=== PATIENT | female | born 1980 | race Caucasian/White ===

== ENCOUNTER 2020-10-02 20:52 | Emergency (ER) | payer OTHER ==
--- NOTE | 2020-10-03 00:58 | EDPHYS ---
Physician Documentation [facility] Name: Keely Gustafson Age: 40 yrs Sex: Female : 1980 Arrival Date: 10/02/2020 Time: 20:55 Bed 13 Private MD: ED Physician Krishna Key HPI: 10/03 01:06 This 40 yrs old Female presents to ER via Ambulatory with complaints of kb Fever, Cough, Sore Throat. 01:06 The patient or guardian reports cough, that is intermittent, described as mild, with no kb sputum, flu symptoms, low-grade fever, myalgias. Onset: The symptoms/episode began/occurred yesterday. Severity of symptoms: At their worst the symptoms were moderate, in the emergency department the symptoms are unchanged. Modifying factors: The symptoms are alleviated by nothing, the symptoms are aggravated by nothing. Associated signs and symptoms: Pertinent positives: fever, rhinorrhea, sore throat. The patient has not experienced similar symptoms in the past. The patient has not recently seen a physician. Historical: - Allergies: 10/02 21:11 No Known Allergies; ss - PMHx: 21:11 Diabetes - IDDM; ss - PSHx: 21:11 ; ss - Immunization history:: Adult Immunizations up to date. - Social history:: Smoking status: Patient denies any tobacco usage or history of. ROS: 10/03 01:05 Neck: Negative for injury, pain, and swelling, Cardiovascular: Negative for chest pain, kb palpitations, and edema, Abdomen/GI: Negative for abdominal pain, nausea, vomiting, diarrhea, and constipation, Back: Negative for injury and pain, MS/Extremity: Negative for injury and deformity, Skin: Negative for injury, rash, and discoloration. Constitutional: Positive for body aches, chills, fatigue, fever, malaise. ENT: Positive for rhinorrhea, sinus congestion, sore throat. Respiratory: Positive for cough, Negative for dyspnea on exertion, hemoptysis, orthopnea, pleurisy, shortness of breath, sputum production, wheezing. Neuro: Positive for headache. Exam: 01:05 Constitutional: This is a well developed, well nourished patient who is awake, alert, kb and in no acute distress. Head/Face: Normocephalic, atraumatic. Chest/axilla: Normal chest wall appearance and motion. Nontender with no deformity. No lesions are appreciated. Cardiovascular: Regular rate and rhythm with a normal S1 and S2. No gallops, murmurs, or rubs. Normal PMI, no JVD. No pulse deficits. Respiratory: Lungs have equal breath sounds bilaterally, clear to auscultation and percussion. No rales, rhonchi or wheezes noted. No increased work of breathing, no retractions or nasal flaring. Abdomen/GI: Soft, non-tender, with normal bowel sounds. No distension or tympany. No guarding or rebound. No evidence of tenderness throughout. Skin: Warm, dry with normal turgor. Normal color with no rashes, no lesions, and no evidence of cellulitis. MS/ Extremity: Pulses equal, no cyanosis. Neurovascular intact. Full, normal range of motion. Neuro: Awake and alert, GCS 15, oriented to person, place, time, and situation. Cranial nerves II-XII grossly intact. Motor strength 5/5 in all extremities. Sensory grossly intact. Cerebellar exam normal. Normal gait. Vital Signs: 10/02 21:06 BP 150 / 85; Pulse 76; Resp 16; Temp 97.9; Pulse Ox 99% on R/A; Weight 95.25 kg; Height ss 5 ft. 5 in. (165.10 cm); Pain 3/10; 10/03 00:36 Pulse 77; Temp 99.3(O); Pulse Ox 99% on R/A; sg 10/02 21:06 Body Mass Index 34.95 (95.25 kg, 165.10 cm) MDM: 00:39 Patient medically screened. kb 01:05 Data reviewed: vital signs, nurses notes. Data interpreted: Pulse oximetry: on room air kb is 99 %. Interpretation: normal. Counseling: I had a detailed discussion with the patient and/or guardian regarding: the historical points, exam findings, and any diagnostic results supporting the discharge/admit diagnosis, lab results, the need for outpatient follow up, a family practitioner, to return to the emergency department if symptoms worsen or persist or if there are any questions or concerns that arise at home. 10/02 21:14 Order name: Flu; Complete Time: 00:27 kb 10/02 21:14 Order name: Strep; Complete Time: 00:27 kb 10/02 21:42 Order name: COVID-19 kb 10/03 00:26 Order name: Throat Culture EDMS Administered Medications: No medications were administered Disposition: 05:18 Co-signature as Attending Physician, Krishna Key MD. [email or web address] Disposition: 10/03/20 00:57 Discharged to Home. Impression: Coronavirus infection, unspecified. - Condition is Stable. - Discharge Instructions: Viral Respiratory Infection, [id number], COVID-19. - Prescriptions for Albuterol Sulfate 90 mcg/actuation - inhale 1-2 puff by INHALATION route every 4-6 hours; 1 Inhaler. - Medication Reconciliation Form, Thank You Letter, Antibiotic Education, Prescription Opioid Use form. - Follow up: Emergency Department; When: As needed; Reason: Worsening of condition. Follow up: Private Physician; When: 2 - 3 days; Reason: Recheck today's complaints, Continuance of care, Re-evaluation by your physician. Signatures: Dispatcher [employer] EDKY Maranda Rhoades, MIKE-Nilam MCKEON-Arias Sahu RN RN sg Smirch, Shelby, RN RN ss Holmes, Maurice, MD MD [email or web address] Corrections: (The following items were deleted from the chart) 01:09 00:57 10/03/2020 00:57 Discharged to Home. Impression: Coronavirus infection, sg unspecified. Condition is Stable. Forms are Medication Reconciliation Form, Thank You Letter, Antibiotic Education, Prescription Opioid Use. Follow up: Emergency Department; When: As needed; Reason: Worsening of condition. Follow up: Private Physician; When: 2 - 3 days; Reason: Recheck today's complaints, Continuance of care, Re-evaluation by your physician. kb
--- NOTE | 2020-10-03 00:58 | ER ---
Nurse's Notes [facility] Name: Keely Gustafson Age: 40 yrs Sex: Female : 1980 Arrival Date: 10/02/2020 Time: 20:55 Bed 13 Private MD: Diagnosis: Coronavirus infection, unspecified Presentation: 10/02 21:06 Chief complaint: Patient states: "Last night I had a bad migraine, and chills. Today I ss started feeling better and out of no where I got hot, my throat started hurting and I took some Motrin because I had a fever.". Coronavirus screen: Client denies travel out of the [place] in the last 14 days. chills, cough unrelated to allergies, headache, shaking with chills, sore throat. Ebola Screen: Patient denies exposure to infectious person. Patient denies travel to an Ebola-affected area in the 21 days before illness onset. Initial Sepsis Screen: Does the patient meet any 2 criteria? No. Patient's initial sepsis screen is negative. Does the patient have a suspected source of infection? No. Patient's initial sepsis screen is negative. Risk Assessment: Do you want to hurt yourself or someone else? Patient reports no desire to harm self or others. Onset of symptoms was October 01, 2020. 21:06 Method Of Arrival: Ambulatory ss 21:06 Acuity: SAUD 4 ss Historical: - Allergies: 21:11 No Known Allergies; ss - PMHx: 21:11 Diabetes - IDDM; ss - PSHx: 21:11 ; ss - Immunization history:: Adult Immunizations up to date. - Social history:: Smoking status: Patient denies any tobacco usage or history of. Screenin/31 00:32 Abuse screen: Denies threats or abuse. Denies injuries from another. Nutritional ss screening: No deficits noted. Tuberculosis screening: No symptoms or risk factors identified. Never had TB. Fall Risk None identified. Assessment: 10/02 21:06 General: Appears uncomfortable, ill, Behavior is calm, cooperative, Reports chills for ss 12-24 hours, fever for 12-24 hours, feeling ill for 12-24 hours, fatigue for 12-24 hours. Pain: Complains of pain in Top of head Pain does not radiate. Pain currently is 3 out of 10 on a pain scale. Quality of pain is described as aching, Pain began 1 day ago. Neuro: Level of Consciousness is awake, alert, obeys commands, Oriented to person, place, time, situation. Cardiovascular: Pulses are palpable in right radial artery and left radial artery. Respiratory: Airway is patent Respiratory effort is even, unlabored, Respiratory pattern is regular, symmetrical. GI: Patient currently denies diarrhea, nausea, vomiting. : No signs and/or symptoms were reported regarding the genitourinary system. EENT: Reports sore throat. Derm: Skin is intact, is healthy with good turgor, Skin is dry, Skin is pink, warm \\T\\ dry. normal. 10/03 00:32 Reassessment: Patient appears in no apparent distress at this time. No changes from previously documented assessment. Vital Signs: 10/02 21:06 BP 150 / 85; Pulse 76; Resp 16; Temp 97.9; Pulse Ox 99% on R/A; Weight 95.25 kg; Height ss 5 ft. 5 in. (165.10 cm); Pain 3/10; 10/03 00:36 Pulse 77; Temp 99.3(O); Pulse Ox 99% on R/A; sg 10/02 21:06 Body Mass Index 34.95 (95.25 kg, 165.10 cm) ED Course: 10/02 20:55 Patient arrived in ED. cl3 21:10 Triage completed. ss 21:11 Arm band placed on right wrist. ss 21:41 Maranda hRoades [facility]C [facility] kb 21:41 Krishna Key MD is Attending Physician. kb 10/03 00:32 Patient has correct armband on for positive identification. Bed in low position. Pulse ss ox on. NIBP on. 00:32 Patient maintains SpO2 saturation greater than 95% on room air. ss 00:39 Lisbet Martell RN is Primary Nurse. ss 00:42 Primary Nurse role handed off by Lisbet Martell RN sg 00:42 Arias Richard, JACQUI is Primary Nurse. sg 00:42 No provider procedures requiring assistance completed. Patient did not have IV access ss during this emergency room visit. Administered Medications: No medications were administered Outcome: 00:57 Discharge ordered by . kb 01:09 Patient left the ED. sg Addendum: 10/05/2020 10:36 Addendum: COVID-19 Result: Positive result giiven to ED physician to notify pt. i w Physician: Sanket Stewart MD Physician was able to contact pt and pt was notified of positive COVID-19 swab result. Physician answered pt questions. Signatures: Maranda Rohades, SKEIN YARN DYER HELPER-C SKEIN YARN DYER HELPER-Ckb Arias Richard RN RN sg Williams, Irene, RN RN iw Lisbet Martell RN RN Shana Cueva cl3
[2020-10-03] MEDS ORDERED: IBUPROFEN 100 MG/5 ML UCUP ONE (01:19)
[2020-10-03 01:24] VITALS: BP 150/85; O2SAT 99
[2020-10-03 01:25] VITALS: TEMP 99.3
== END 2020-10-03 01:09 | disposition home or self-care (01) ==
LOC: ER 20:52
DX: U07.1 COVID-19 (principal)
CPT/HCPCS: 87070; 87081; 87804 ×2; 99284; U0002

== ENCOUNTER 2022-01-25 08:33 | Emergency (ER) | payer OTHER ==
--- OUTSIDE RECORDS SUMMARY | 2022-01-25 08:36 | XMS REPORT | Continuity of Care Document ---
:1980 Author Organization [facility] t Address [address] [place] [address] Care Team Providers Name Role Phone VISHNU RAINES Primary Care Physician Unavailable Kemal Attending Clinician Unavailable Rinku GARVIN Attending Clinician Unavailable Lulu LARWENCE Attending Clinician Lab, - Db Attending Clinician Unavailable Rinku Garvin MD Attending Clinician Payers Payer Name Policy Type Policy Number Effective Date Expiration Date S ource [place] [id number] 2017 [place]OMEN 00:00:00 [place] CHILDR[place] [id number] 2016 HEALTH 00:00:00 Problems Condition Condition Condition Status Onset Resolution Last Treating Co mments Source Name Details Category Date Date Treatment Clinician Date No known No known Disease Unive rs active active ity of problems problems [facility] Allergies, Adverse Reactions, Alerts Allergy Allergy Status Severity Reaction(s) Onset Inactive Treating Comm ents Source Name Type Date Date Clinician NO KNOWN Drug Active Univers ALLERGIE Class ity of S [facility] Social History Social Habit Start Date Stop Date Quantity Comments Source Exposure to Not sure [facility] SARS-CoV-2 (event) Medica l Branch Sex Assigned At [birth year] [facility] 00:00:00 00:00:00 Medical Branch Smoking Status Start Date Stop Date Source Unknown if ever smoked [facility] Medical Branch Medications Ordered Filled Start Stop Current Ordering Indication Dosage Frequency Signature Comments Components Source Medication Medication Date Date Medication? Clinician (SIG) Name Name Insulin Yes [id number] 30U inject 30 U nivers Glargine 2-11 Units ity of (LANTUS 00:00: under the [place] SOLOSTAR 00 skin Medical U-100 daily. Branch INSULIN) 100 unit/mL (3 mL) injection insulin Yes [id number] 10U inject 10 U nivers aspart 2-11 Units ity of U-100 00:00: under the [place] (NOVOLOG 00 skin 3 Medical FLEXPEN (three) Branch U-100 times INSULIN) daily 100 unit/mL before (3 mL) meals. injection Insulin Yes [id number] Use as Univ ers [place], 2-11 directed ity of Disposable, 00:00: [place] (PEN 00 Medical NEEDLE) 31 Branch gauge x 5/16" Ndle Insulin Yes [id number] 30U inject 30 U nivers Glargine 2-11 Units ity of (LANTUS 00:00: under the [place] SOLOSTHI 00 skin Medical U-100 daily. Branch INSULIN) 100 unit/mL (3 mL) injection insulin Yes [id number] 10U inject 10 U nivers aspart 2-11 Units ity of U-100 00:00: under the [place] (NOVOLOG 00 skin 3 Medical FLEXPEN (three) Branch U-100 times INSULIN) daily 100 unit/mL before (3 mL) meals. injection Insulin Yes [id number] Use as Univ ers [place], 2-11 directed ity of Disposable, 00:00: [place] (PEN 00 Medical NEEDLE) 31 Branch gauge x 5/16" Ndle Atorvastati Atorvastati 2019-0 Yes [place] [address] [facility] n Calcium n Calcium 4-16 [facility] - 00[facility]00: [facility] FreeStyle FreeStyle 2020-0 Yes [place] Test blood [facility] Lancets Lancets 4-16 [facility] sugar [facility] - 00:[facility]: [facility] FreeStyle FreeStyle 2019-0 Yes [place] test blood [facility] Lite Test Lite Test 4-16 [place] sugar Maggie es - 00:00: [facility] Outpat[facility] ent Clinics Humalog Humalog Yes [place] glucose [facility] KwikPen KwikPen 4- Milam 201-250 = Maggie es - 00:00: 4 Memoria 00 units,251- l 300=7 Outpati units, ent 301-350=9 Clinics units,351- 400=11 units over 400 call PCP Metoprolol Metoprolol Yes [place] [address] [facility] Succinate Succinate -08 [facility] Luke [facility] - ER ER 00:00: [facility] l Outpat[facility] ent Clinics [facility] 2018-10 Yes [id number] Apply to [facility] - area(s) 2 ity of acetonide 00:00: (two) [place] 0.1 % cream 00 times Medical daily. Branch [facility] 2018-10 Yes [id number] Apply to [facility] - area(s) 2 ity of acetonide 00:00: (two) [place] 0.1 % cream 00 times Medical daily. Branch prednisoLON Yes 1[drp] Place 1 U nivers E acetate 6-24 Drop in ity of (PRED 00:00: left eye [place] FORTE) 1 % 00 every 2 Medica l ophthalmic (two) Branch suspension hours. drops cyclopentol Yes 1[drp] Place 1 U nivers ate 6-24 Drop in ity of (CYCLOGYL) 00:00: left eye 3 [place] 1 % 00 (three) Medical ophthalmic times Branch drops daily. prednisoLON Yes 1[drp] Place 1 U nivers E acetate 6-24 Drop in ity of (PRED 00:00: left eye [place] FORTE) 1 % 00 every 2 Medica l ophthalmic (two) Branch suspension hours. drops cyclopentol Yes 1[drp] Place 1 U nivers ate 6-24 Drop in ity of (CYCLOGYL) 00:00: left eye 3 [place] 1 % 00 (three) Medical ophthalmic times Branch drops daily. metFORMIN 2016-10 Yes 1000mg Take 2 Univ ers 500 mg 2-18 tablets by ity of tablet 00:00: mouth 2 [place] 00 (two) Medical times Branch daily with meals. metFORMIN 2016-10 Yes 1000mg Take 2 Univ ers 500 mg 2-18 tablets by ity of tablet 00:00: mouth 2 [place] 00 (two) Medical times Branch daily with meals. ZOAN, 2015-0 Yes 4mg Take 1 Tab U nivers HYDROCHLORI 3-12 by mouth ity of [place], 4 mg 00:00: every 12 [place] tablet 00 (twelve) Medical hours. Branch ZOFRAN, 2015-0 Yes 4mg Take 1 Tab U nivers HYDROCHLORI 3-12 by mouth ity of [place], 4 mg 00:00: every 12 [place] tablet 00 (twelve) Medical hours. Branch Losartan Losartan Yes [place] [address] Potassium Potassium [facility] - [facility] Levemir Levemir Yes [place] [address] [facility] [facility] FlexTouch FlexTouch [facility] - [facility] Metformin Metformin Yes [place] [address] [facility] HCl HCl Milam with a [facility] - meal [facility] Immunizations Ordered Filled Immunization Date Status Comments Sourc e Immunization Name Name Flucelvax Flucelvax 2018-07-[address] [facility] Procedures Procedure Date / Time Performed Performing Clinician Sourc e COMP. METABOLIC PANEL 2021-11-14 18:06:00 Josep Garvin [facility] ([id number]) Medical Branch LIPID PANEL 2021-11-14 18:06:00 Josep Garvin [facility] ([id number])(TOTAL Medical Branch CHOLESTEROL, TRIGLYCERIDES, HDL) CBC WITHOUT DIFF 2021-11-14 18:06:00 Josep Garvin [facility] Medical Branch Encounters Start End Encounter Admission Attending Care Care Encounter Source Date/Time Date/Time Type Type Clinicians Facility Department ID 2021-10-29 Outpatient [facility] [id number] [facility] 14:15:45 [place] [id number] [facility] 2021-10-29 Outpatient MilamSTSELENALC [facility] [id number] [facility] [address] 13:48:01 [place] [id number] [facility] 2021-10-29 Outpatient Milam, [facility] [id number] 11:29:48 [place] [id number] [facility] 2021-10-29 Outpatient Kemal [facility] [id number] [facility] 11:17:46 [place] [id number] [facility] 2022-03-20 2022-03-20 Outpatient Yeimy GARVIN [facility] [id number] Univers 14:00:00 14:00:00 JOSEP [id number] [facility] 2022-03-20 2022-03-20 [facility] [id number] Univers 14:00:00 14:00:00 JOSEP [facility] 2022-01-01 2022-01-01 ambulatory [facility] [id number] [facility] 2021-11-15 2021-11-15 Telephone Carlos Lawson [facility] [id number] Univers 00:00:00 00:00:00 HEALTH [id number] it y of [facility] [id number] [place] [facility] [phone] [address] ([facility]) 2021-11-14 2021-11-14 Product Development Intern Lab, Deon Shelton [facility] [id number] Univers 12:00:00 12:48:32 Visit Josep Garvin HEALTH [id number] ity of [place] [id number] Kam as JIM?BLEA [phone] [place] [address] MEDICAL OFFICE BUILDING 2021-11-14 2021-11-14 [facility] [id number] Univers 11:00:00 11:51:54 JOSEP [facility] 2021-08-11 2021-08-11 ambulatory [facility]C [facility] [id number] [facility] 2021-07-07 2021-07-07 Outpatient [facility] [id number] [facility] 2021-05-26 2021-05-26 Outpatient [facility]LMLC [facility] [id number] [facility] 2021-01-14 2021-01-14 Outpatient [facility]LMLC [facility] [id number] [facility] 2020-12-26 2020-12-26 Outpatient [facility]LMLC [facility] [id number] [facility] 2020-12-20 2020-12-20 Outpatient [facility]LMLC [facility] [id number] [facility] 2020-12-19 2020-12-19 Outpatient [facility]LMLC [facility] [id number] [facility] 2020-12-19 2020-12-19 Outpatient [facility]LMLC [facility] [id number] [facility] 2020-10-28 2020-10-28 Outpatient STLMLC [facility] [id number] [facility] 2020-10-28 2020-10-28 Outpatient [facility]LMLC [facility] [id number] [facility] 2020-10-14 2020-10-14 Outpatient [facility]LMLC [facility] [id number] [facility] 2020-10-14 2020-10-14 Outpatient [facility]LMLC [facility] [id number] [facility] 2020-05-21 2020-05-21 [facility] [id number] [address] 13:00:00 13:00:00 [facility] Outpat[facility] ent Clinics 2020-03-01 2020-03-01 [facility] [id number] 10:40:00 10:40:00 t [facility] Medicine Medicine Outpati ent Clinics 2020-01-18 2020-01-18 [facility] [id number] 09:07:00 09:07:00 t [facility] Medicine Outpati ent Clinics 2020-01-18 2020-01-18 [facility] [id number] 08:41:00 08:41:00 t [facility] Medicine l Medicine Outpati ent Clinics 2020-01-17 2020-01-17 [facility] [id number] 14:00:00 14:00:00 t [facility] Medicine Outpati ent Clinics 2020-01-12 2020-01-12 [facility] [id number] 14:31:00 14:31:00 t [facility] Medicine Outpati ent Clinics 2020-01-12 2020-01-12 [facility] [id number] 14:25:00 14:25:00 t [facility] Medicine Outpati ent Clinics 2020-01-10 2020-01-10 [facility] [id number] 14:40:00 14:40:00 t [facility] Medicine Outpati ent Clinics 2019-08-02 2019-08-02 [facility] [id number] 09:40:00 09:40:00 t [facility] Medicine Medicine Outpati ent Clinics 2019-07-27 2019-07-27 [facility] [id number] 11:46:00 11:46:00 t [facility] [place] Medicine Outpati ent Clinics 2019-07-17 2019-07-17 [facility] [id number] [facility] 14:40:00 14:40:00 t [facility] l Medicine Outpati ent Clinics 2019-07-03 2019-07-03 [facility] [id number] 11:40:00 11:40:00 [facility] 2018-12-16 2018-12-16 [facility] [id number] 14:14:00 14:14:00 [facility] 2018-12-15 2018-12-15 [facility] [id number] 09:00:00 09:00:00 [facility] 2018-11-01 2018-11-01 [facility] [id number] 14:30:00 14:30:00 [facility] 2018-10-12 2018-10-12 [facility] [id number] 15:00:00 15:00:00 [facility] 2018-07-13 2018-07-13 [facility] [id number] 15:00:00 15:00:00 [facility] ent Clinics Results Test Description Test Time Test Comments Results Result Comments Source CBC WITHOUT DIFF 2021-11-14 23:08:38 Test Item Value Reference Range Interpretation Comme nts WBC (test code = 6690-2) See_Comment [A utomated message] The system which generated this result transmitted ref erence range: 4.30 - 11.10 10 *3/?L. The reference range was not used to interpret this result as normal/abnormal . RBC (test code = 789-8) See_Comment [Au tomated message] The system which generated this result transmitted ref erence range: 3.93 - 5.25 10* 6/?L. The reference range was not used to interpret this result as normal/abnormal . HGB (test code = 718-7) 12.5 g/dL 11.6-15.0 HCT (test code = 4544-3) 39.0 % 35.7-45.2 MCH (test code = 785-6) 26.4 pg 25.9-32.8 MCV (test code = 787-2) 82.3 fL 80.6-95.5 MCHC (test code = 786-4) 32.1 g/dL 31.6-35.1 PLT (test code = 777-3) See_Comment [Au tomated message] The system which generated this result transmitted ref erence range: 166 - 358 10*3/ ?L. The reference range was not used to interpret this result as normal/abnormal . MPV (test code = 86761-8) 11.7 fL 9.5-12.9 RDW-CV (test code = 788-0) 13.0 % 12.0-15.5 RDW-SD (test code = 74662-0) 38.7 fL 39.0-49.9 L NRBC x10^3 (test code = <0.01 See_Comment [Au tomated message] The system [id number]) which generated this result transmitted ref erence range: 10*3/?L. The re ference range was not used to interpret this result as lane l/abnormal. NRBC/100 WBC (test code = See_Comment [ Automated message] The system [id number]) which generated this result transmitted ref erence range: 0.0 - 10.0 /100 WBCs. The reference range was not used to interpret this result as normal/abnormal . IPF % (test code = 2780969777) Lab Interpretation (test code Abnormal = 26694-1) [id number][facility]TOTAL CHOLESTEROL, TRIGLYCERIDES, HDL)2021-11-14 22:18:31 Test Item Value Reference Range Interpretation Comments CHOL (test code = 204 mg/dL 120-200 H [id number]) HDL (test code = 45 mg/dL >50 L [id number]) HDLC RATIO (test code = See_Comment [Au tomated message] [id number]) The system whic h generated this result transmit mynor reference range : <=4.5. The refe rence range was not u sed to interpret th is result as normal/abnormal . TRIG (test code = 250 mg/dL 30-170 H [id number]) LDL CHOL (test code = 109 mg/dL See_Comment [Auto mated message] 45220-2) The system Stepsss generated this result transmit mynor reference range : <=160. The refe rence range was not u sed to interpret th is result as normal/abnormal . VLDL (test code = 50 mg/dL 5-60 5913450304) Lab Interpretation (test Abnormal code = 89173-1) [facility]. METABOLIC PANEL ([id number])2021-11-14 21:56:26 Test Item Value Reference Range Interpretation Comments NA (test code = 135 mmol/L 135-145 [id number]) K (test code = 4.5 mmol/L 3.5-5.0 5334104005) CL (test code = 101 mmol/L 98-108 6905366540) CO2 TOTAL (test code = 28 mmol/L 23-31 8953108562) AGAP (test code = 2-16 7203546489) BUN (test code = 16 mg/dL 7-23 6209705697) GLUCOSE (test code = 275 mg/dL 70-110 H [id number]) CREATININE (test code = 0.34 mg/dL 0.50-1.04 L 0736134481) TOTAL BILI (test code = 0.5 mg/dL 0.1-1.1 4798240268) CALCIUM (test code = 9.2 mg/dL 8.6-10.6 9636638227) T PROTEIN (test code = 7.1 g/dL 6.3-8.2 8357454008) ALBUMIN (test code = 4.4 g/dL 3.5-5.0 4215448287) ALK PHOS (test code = 55 U/L 34-122 9349343207) ALTv (test code = 13 U/L 5-35 1742-6) AST(SGOT) (test code = 18 U/L 13-40 7409147816) eGFR (test code = mL/min/1.73m2 6362700968) MELVIN (test code = MELVIN) Association of Glomerular Filtration Rate (GFR) and Staging of Kidney Disease* + --+ --+ ------+| GFR (mL/min/1.73 m2) ?| With Kidney Damage ?| ?Without Kidney Damage+ --------+ --------+ +| ?>90 ?| ?Stage one ?| ? Normal ?+ ---+ ---+ -------+| ?60-89 ?| ?Stage two ?| ? Decreased GFR ? + --+ --+ ------+| ?30-59 ?| ?Stage three ?| ? Stage three ? + --+ --+ ------+| ?15-29 ?| ?Stage four ? | ? Stage four ?+ ---+ ---+ -------+| ?<15 (or dialysis) ? ?| ?Stage five ? | ? Stage five ?+ ---+ ---+ -------+ *Each stage assumes the associated GFR level has been in effect for at least three months. ?Stages 1 to 5, with or without kidney disease, indicate chronic kidney disease. Notes: Determination of stages one and two (with eGFR >59mL/min/1.73 m2) requires estimation of kidney damage for at least three months as defined by structural or functional abnormalities of the kidney, manifested by either:Pathological abnormalities or Markers of kidney damage (including abnormalities in the composition of the blood or urine or abnormalities in imaging tests). Lab Interpretation Abnormal (test code = 92933-1) [facility]
[2022-01-25] MEDS ORDERED: CYCLOBENZAPRINE 10 MG TAB ONE (09:02)
[2022-01-25] MEDS ORDERED: HYDROCODONE/APAP 10/325 TAB ONE (09:03)
[2022-01-25] MEDS ORDERED: KETOROLAC 30 MG/ML INJ ONE (09:03)
[2022-01-25] MEDS ORDERED: LIDOCAINE 4% PATCH ONE (09:03)
--- NOTE | 2022-01-25 10:02 | ER ---
Nurse's Notes [facility] Name: Keely Gustafson Age: 41 yrs Sex: Female : 1980 Arrival Date: 01/25/2022 Time: 08:35 Bed 19 Private MD: Mercedez Sommer Diagnosis: Strain of muscle, fascia and tendon of lower back Presentation: 01/25 08:45 Chief complaint: Patient states: R lower back pain since bending over Wednesday morning. ll1 Has gotten worse and radiates up R side of back now. Coronavirus screen: Vaccine status: Patient reports receiving the 2nd dose of the covid vaccine. Client denies travel out of the [place] in the last 14 days. At this time, the client does not indicate any symptoms associated with coronavirus-19. Ebola Screen: Patient denies travel to an Ebola-affected area in the 21 days before illness onset. Initial Sepsis Screen: Does the patient meet any 2 criteria? HR > 90 bpm. No. Patient's initial sepsis screen is negative. Does the patient have a suspected source of infection? Yes: Bone or joint infection. Risk Assessment: Do you want to hurt yourself or someone else? Patient reports no desire to harm self or others. Onset of symptoms was January 23, 2022. 08:45 Method Of Arrival: Wheelchair ll1 08:45 Acuity: SAUD 4 ll1 Triage Assessment: 08:46 General: Appears uncomfortable, Behavior is cooperative, appropriate for age. Pain: ll1 Complains of pain in back Quality of pain is described as aching. Neuro: No deficits noted. Cardiovascular: No deficits noted. Respiratory: No deficits noted. Musculoskeletal: Circulation, motion, and sensation intact. Capillary refill < 3 seconds, Range of motion: intact in all extremities, Reports pain in back. FAC ENGINEER: 08:47 LMP N/A - control method ll1 Historical: - Allergies: 08:44 No Known Drug Allergies; ll1 - PMHx: 08:44 Diabetes - IDDM; ll1 08:44 Hypertensive disorder; ll1 - PSHx: 08:44 section; ll1 - Immunization history:: Client reports receiving the 2nd dose of the Covid vaccine. - Social history:: Smoking status: Reported history of juuling and/or vaping. Screenin:47 Abuse screen: Denies threats or abuse. Nutritional screening: No deficits noted. ll1 Tuberculosis screening: No symptoms or risk factors identified. Fall Risk Ambulatory Aid- Crutches/Cane/Walker (15 pts). Gait- Weak (10 pts.). Total Rutledge Fall Scale indicates Low Risk Score (25-44 pts). Fall prevention measures have been instituted. Side Rails Up X 2 Placed close to Nursing Station Frequent Obs/Assesments occuring Family Present and informed to notify staff if they need to leave bedside As available Patient and Family Educated on Fall Prevention Program and strategies. Assessment: 09:45 Reassessment: No changes from previously documented assessment. Patient and/or family ll1 updated on plan of care and expected duration. Pain level reassessed. Patient is alert, oriented x 3, equal unlabored respirations, skin warm/dry/pink. Patient states feeling better. Patient states symptoms have improved. Neuro: No deficits noted. 10:12 Reassessment: No changes from previously documented assessment. Patient and/or family ll1 updated on plan of care and expected duration. Pain level reassessed. Patient is alert, oriented x 3, equal unlabored respirations, skin warm/dry/pink. Neuro: No deficits noted. Vital Signs: 08:45 BP 154 / 100; Pulse 108; Resp 18; Temp 97.1; Pulse Ox 100% ; Weight 95.25 kg; Height 5 ll1 ft. 5 in. (165.10 cm); Pain 10/10; 10:10 BP 146 / 99; Pulse 100; Resp 17; Pulse Ox 100% ; Pain 1/10; ll1 08:45 Body Mass Index 34.95 (95.25 kg, 165.10 cm) ll1 ED Course: 08:35 Patient arrived in ED. mr 08:35 Mercedez Sommer is Private Physician. mr 08:38 Pawel Betancourt NP is PHCP. pm1 08:38 Gelacio Truong MD is Attending Physician. pm1 08:44 Arm band placed on Patient placed in an exam room, on a stretcher. ll1 08:46 Triage completed. ll1 08:47 Patient has correct armband on for positive identification. Bed in low position. Call ll1 light in reach. Side rails up X 1. Pulse ox on. NIBP on. 09:09 Chinedu, Lynsay, RN is Primary Nurse. 1 10:12 No provider procedures requiring assistance completed. Patient did not have IV access ll1 during this emergency room visit. Administered Medications: 09:08 Drug: Lidoderm Patch 5 % (700 mg/patch) 1 patches Route: Topical; Site: affected area; ll1 10:11 Follow up: Response: No adverse reaction; Pain is decreased; RASS: Alert and Calm (0) 1 09:08 Drug: Ketorolac 60 mg Route: IM; Site: left gluteus; ll1 10:11 Follow up: Response: No adverse reaction; Pain is decreased; RASS: Alert and Calm (0) 1 09:08 Drug: [place] (HYDROcodone-acetaminophen) 10 mg-325 mg 1 tabs {Note: rass 0, pain 10/10.} ll1 Route: PO; 10:11 Follow up: Response: No adverse reaction; Pain is decreased; RASS: Alert and Calm (0) 1 09:08 Drug: Flexeril (cyclobenzaprine) 10 mg Route: PO; ll1 10:11 Follow up: Response: No adverse reaction; Pain is decreased; RASS: Alert and Calm (0) [facility] Outcome: 10:02 Discharge ordered by MD. pm1 10:12 Discharged to home via wheelchair. ll1 10:12 Condition: stable 10:12 Discharge instructions given to patient, Instructed on discharge instructions, follow up and referral plans. no drinking with medication, no driving heavy equipment, medication usage, Demonstrated understanding of instructions, follow-up care, medications, Prescriptions given X 4. 10:12 Patient left the ED. 1 Signatures: Rupal Aranda Patrick, [employer] pm1 Stella Che, RN RN [facility]
--- NOTE | 2022-01-25 10:02 | EDPHYS ---
Physician Documentation [facility] Name: Keely Gustafson Age: 41 yrs Sex: Female : 1980 Arrival Date: 01/25/2022 Time: 08:35 Bed 19 Private MD: Mercedez Sommer ED Physician Gelacio Truong HPI: 01/25 08:56 This 41 yrs old Female presents to ER via Wheelchair with complaints of Back pm1 Pain. 08:56 The patient presents with pain that is acute. The symptoms are located in the right low pm1 back. Onset: The symptoms/episode began/occurred 2 day(s) ago. The pain radiates to the right mid back. Associated signs and symptoms: Pertinent negatives: dysuria, numbness, tingling, weakness. The problem was sustained when bending over, to crab picker dog treat rom under the refrigerator. Modifying factors: The patient symptoms are alleviated by specific position, the patient symptoms are aggravated by sitting and movement. Severity of symptoms: in the emergency department the symptoms are actually worse. The patient has not experienced similar symptoms in the past. The patient has not recently seen a physician. Patient was feeding her dog some treats when one of the treats went underneath the refrigerator. She bent over at the hip to crab picker the treat then she felt a mild pop/pain in her right upper buttocks area. Patient went to work the same day and then started experiencing more pain at sitting at her desk after 2 hours of work. Patient presents to the ER today due to increased pain. 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 - Social history:: Smoking status: Reported history of juuling and/or vaping. ROS: 08:56 Constitutional: Negative for fever, chills, and weight loss, Cardiovascular: Negative pm1 for chest pain, palpitations, and edema, Respiratory: Negative for shortness of breath, cough, wheezing, and pleuritic chest pain, Abdomen/GI: Negative for abdominal pain, nausea, vomiting, diarrhea, and constipation, MS/Extremity: Negative for injury and deformity, Skin: Negative for injury, rash, and discoloration. 08:56 Back: Positive for injury or acute deformity, pain with movement, of the right low back, Pain. 08:56 Neuro: Negative for numbness, tingling, weakness. 08:56 All other systems are negative. Exam: 08:56 Constitutional: This is a well developed, well nourished patient who is awake, alert, pm1 and in no acute distress. Head/Face: Normocephalic, atraumatic. 08:56 Skin: Warm, dry with normal turgor. Normal color with no rashes, no lesions, and no evidence of cellulitis. MS/ Extremity: Pulses equal, no cyanosis. Neurovascular intact. Full, normal range of motion. 08:56 Cardiovascular: Exam negative for acute changes, Rate: normal, Rhythm: regular, Pulses: no pulse deficits are appreciated. 08:56 Respiratory: Exam negative for acute changes, respiratory distress, shortness of breath, Breath sounds: are clear throughout. 08:56 Back: normal spinal alignment noted, muscle spasm, is appreciated in the right upper buttocks just below posterior iliac crest, negative vertebral tenderness. 08:56 Neuro: Exam negative for acute changes, Orientation: is normal, Mentation: is normal, Motor: is normal, moves all fours, Sensation: is normal, no obvious gross deficits. Vital Signs: 08:45 BP 154 / 100; Pulse 108; Resp 18; Temp 97.1; Pulse Ox 100% ; Weight 95.25 kg; Height 5 ll1 ft. 5 in. (165.10 cm); Pain 10/10; 10:10 BP 146 / 99; Pulse 100; Resp 17; Pulse Ox 100% ; Pain 1/10; ll1 08:45 Body Mass Index 34.95 (95.25 kg, 165.10 cm) ll1 MDM: 08:45 Patient medically screened. pm1 10:01 Data reviewed: vital signs. Data interpreted: Pulse oximetry: on room air is 100 %. pm1 Interpretation: normal. Counseling: I had a detailed discussion with the patient and/or guardian regarding: the historical points, exam findings, and any diagnostic results supporting the discharge/admit diagnosis, the need for outpatient follow up, to return to the emergency department if symptoms worsen or persist or if there are any questions or concerns that arise at home. 10:01 ED course: Patient reports significant improvement in pain and is ready to go home. pm1 Administered Medications: 09:08 Drug: Lidoderm Patch 5 % (700 mg/patch) 1 patches Route: Topical; Site: affected area; ll1 10:11 Follow up: Response: No adverse reaction; Pain is decreased; RASS: Alert and Calm (0) 1 09:08 Drug: Ketorolac 60 mg Route: IM; Site: left gluteus; ll1 10:11 Follow up: Response: No adverse reaction; Pain is decreased; RASS: Alert and Calm (0) 1 09:08 Drug: Hinkle (HYDROcodone-acetaminophen) 10 mg-325 mg 1 tabs {Note: rass 0, pain 10/10.} ll1 Route: PO; 10:11 Follow up: Response: No adverse reaction; Pain is decreased; RASS: Alert and Calm (0) [facility] 09:08 Drug: Flexeril (cyclobenzaprine) 10 mg Route: PO; ll1 10:11 Follow up: Response: No adverse reaction; Pain is decreased; RASS: Alert and Calm (0) [facility] Disposition Summary: 01/25/22 10:02 Discharge Ordered Location: Home pm1 Problem: new pm1 Symptoms: have improved pm1 Condition: Stable pm1 Diagnosis - Strain of muscle, fascia and tendon of lower back pm1 Followup: pm1 - With: Emergency Department - When: As needed - Reason: Worsening of condition Followup: pm1 - With: Private Physician - When: 2 - 3 days - Reason: Recheck today's complaints, Continuance of care, Re-evaluation by your physician Discharge Instructions: - Acute Back Pain, Adult pm1 - Muscle Strain pm1 - Discharge Summary Sheet ll1 - Back Injury Prevention pm1 Forms: - Work release form ll1 - Medication Reconciliation Form pm1 - Thank You Letter pm1 - Antibiotic Education pm1 - Prescription Opioid Use pm1 Prescriptions: - Lidoderm 5 % Topical adhesive patch,medicated - apply 1 patch by TRANSDERMAL route once daily As needed 12 hours on and 12 hors pm1 off in a 24 hour period; 10 patch; Refills: 0, Product Selection Permitted - Cyclobenzaprine 10 mg Oral Tablet - take 1 tablet by ORAL route every 8 hours As needed; 30 tablet; Refills: 0, pm1 Product Selection Permitted - Tylenol-Codeine #3 300 mg-30 mg Oral - take 2 tablet by ORAL route every 6 hours As needed; 20 tablet; Refills: 0, pm1 Product Selection Permitted - Diclofenac Sodium 75 mg Oral tablet,delayed release (DR/EC) - take 1 tablet by ORAL route 2 times per day As needed; 30 tablet; Refills: 0, pm1 Product Selection Permitted Signatures: Pawel Betancourt NP CORNER BEAD OPERATOR pm1 Stella Che RN RN ll1
[2022-01-25 10:34] VITALS: BP 146/99; O2SAT 100
[2022-01-25 10:35] VITALS: TEMP 97.1
== END 2022-01-25 10:12 | disposition home or self-care (01) ==
LOC: ER 08:33
DX: S39.012A Strain of muscle, fascia and tendon of lower back, initial encounter (principal); E11.9 Type 2 diabetes mellitus without complications; I10 Essential (primary) hypertension
CPT/HCPCS: 96372; 99283

== ENCOUNTER 2022-09-13 19:57 | Emergency (ER) | payer OTHER ==
--- OUTSIDE RECORDS SUMMARY | 2022-09-13 20:00 | XMS REPORT | Continuity of Care Document ---
:1980 Author Organization [facility] t Address [address] [place] [address] Care Team Providers Name Role Phone MERCEDEZ RAINES Primary Care Physician Unavailable Mercedez Raines Attending Clinician Unavailable GC_SEFP_Rivera_A Attending Clinician Unavailable JOSEP GARVIN Attending Clinician Unavailable Carlos Lawson MD Attending Clinician Lab, Ang - Db Attending Clinician Unavailable Josep Garvin MD Attending Clinician GC_SEFP_Rivera_A Admitting Clinician Unavailable Payers Payer Name Policy Type Policy Number Effective Date Expiration Date S [place] OF [id number] 2022 [place] - [facility] 00:00:00 (POS) CT CHILDREN STAR [id number] 2017 00:00:00 [place] CHILDRENS [id number] 2017 Common HEALTH PLAN 00:00:00 [facility] CHILDRENS C1 [id number] 2019 Common [facility] [id number] 2017 Common HEALTH PLAN 00:00:00 [facility] Problems Condition Condition Condition Status Onset Resolution Last Treating Co mments Source Name Details Category Date Date Treatment Clinician Date [id number] Other Problem Active Common chronic Spirit pain - [facility] [id number] Mixed Problem Active Common hyperlipid Spirit emia - [facility] Essential Hypertensi Problem Active Co mmon hypertensi on, Spirit on unspecifie - CHI d type [facility] [id number] 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 - CHI knee [facility] Slow Slow Problem Active Common transit transit Spirit constipati constipati - CHI on on [facility] [id number] oysterman Problem Active Com wed current Spirit use of - CHI insulin [facility] [id number] Allergic Problem Active Comm on conjunctiv Spirit itis of - CHI both eyes [facility] [id number] Diabetic Problem Active Comm on autonomic Spirit neuropathy - [facility] associated [facility] [place] [address] diabetes Medica l mellitus [place] [id number] 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 - [facility] r [facility] No known No known Disease Unive rs active active ity of problems problems [facility] Allergies, Adverse Reactions, Alerts Allergy Allergy Status Severity Reaction(s) Onset Inactive Treating Comm ents Source Name Type Date Date Clinician NO KNOWN Drug Active Univers ALLERGIE Class ity of [facility] Social History Social Habit Start Date Stop Date Quantity Comments Source History of Tobacco Use Co mmon [facility] Sex Assigned At Com mon [facility] Exposure to SARS-CoV-2 Not sure Un iversity [facility] (event) Medical Branch Smoking Status Start Date Stop Date Source Unknown if ever smoked [facility] Never Smoker Common [facility] Medications Ordered Filled Start Stop Current Ordering Indication Dosage Frequency Signature Comments Components Source Medication Medication Date Date Medication? Clinician (SIG) Name Name Colace 100 Colace 100 2021- No 2{capsu QD Colace 100 MG MG 01-01 le_as_n MG 00:00: 00:00 eeded} 00 :00 Insulin Yes [id number] 30U inject 30 U nivers Glargine 2-11 Units ity of (LANTUS 00:00: under the [place] SOLOSTAR 00 skin Medical U-100 daily. Branch INSULIN) 100 unit/mL (3 mL) injection insulin Yes [id number] 10U inject 10 U nivers aspart 2-11 Units ity of U-100 00:00: under the [place] (NOVOLOG 00 skin 3 Medical FLEXPEN (three) Branch U-100 times INSULIN) daily 100 unit/mL before (3 mL) meals. injection Insulin Yes [id number] Use as Univ ers [place], 2-11 directed ity of Disposable, 00:00: [place] (PEN 00 Medical NEEDLE) 31 Branch gauge x 5/16" Ndle Insulin Yes [id number] 30U inject 30 U nivers Glargine 2-11 Units ity of (LANTUS 00:00: under the [place] SOLOSTAR 00 skin Medical U-100 daily. Branch INSULIN) 100 unit/mL (3 mL) injection insulin Yes [id number] 10U inject 10 U nivers aspart 2-11 Units ity of U-100 00:00: under the [place] (NOVOLOG 00 skin 3 Medical FLEXPEN (three) Branch U-100 times INSULIN) daily 100 unit/mL before (3 mL) meals. injection Insulin Yes [id number] Use as Univ ers [place], 2-11 directed ity of Disposable, 00:00: [place] (PEN 00 Medical NEEDLE) 31 Branch gauge x 5/16" Ndle Fluconazole Fluconazole 2020-10- No 1{table Fluconazol 150 MG 150 MG 0-05 10-15 t} e 150 MG 00:00: 00:00 00 :00 Lactulose Lactulose No QD Lactulose 10 GM/15ML 10 GM/15ML 3-29 10 GM/15ML 00:00: 00 Lactulose Lactulose 0 No QD Lactulose 10 GM/15ML 10 GM/15ML 3-29 10 GM/15ML 00:00: 00 Linzess 72 Linzess 72 2020- No QD Linzess 72 MCG MCG 3-18 06-16 MCG 00:00: 00:00 00 :00 Linzess 72 Linzess 72 2020- No QD Linzess 72 MCG MCG 3-18 06-16 MCG 00:00: 00:00 00 :00 Atorvastati Atorvastati 2020-0 Yes Mercedez 1 tablet Common n Calcium n Calcium 4-16 [place] Spir it 00:00: - CHI 00 [facility] FreeStyle FreeStyle 2020-0 Yes Mercedez Test blood Common Lancets Lancets 4-16 [place] sugar Spirit 00:00: - CHI 00 [facility] FreeStyle FreeStyle 2020-0 Yes Mercedez test blood Common Lite Test Lite Test 4-16 [place] sugar Spi rit 00:00: - CHI 00 [facility] FreeStyle FreeStyle 2020-0 No FreeStyle Lancets - Lancets - 4-16 Lancets - 00:00: 00 FreeStyle FreeStyle 2020-0 No FreeStyle Lite Test - Lite Test - 4-16 Lite Test 00:00: - 00 FreeStyle FreeStyle 2020-0 No FreeStyle Lancets - Lancets - 4-16 Lancets - 00:00: 00 FreeStyle FreeStyle 2020-0 No FreeStyle Lite Test - Lite Test - 4-16 Lite Test 00:00: - 00 FreeStyle FreeStyle 2020-0 No FreeStyle Lancets - Lancets - 4-16 Lancets - 00:00: 00 FreeStyle FreeStyle 2020-0 No FreeStyle Lancets - Lancets - 4-16 Lancets - 00:00: 00 FreeStyle FreeStyle 2020-0 No FreeStyle Lite Test - Lite Test - 4-16 Lite Test 00:00: - 00 FreeStyle FreeStyle 2020-0 No FreeStyle Lite Test - Lite Test - 4-16 Lite Test 00:00: - 00 FreeStyle FreeStyle 2020-0 No FreeStyle Lancets - Lancets - 4-16 Lancets - 00:00: 00 FreeStyle FreeStyle 2020-0 No FreeStyle Lite Test - Lite Test - 4-16 Lite Test 00:00: - 00 FreeStyle FreeStyle 2020-0 No FreeStyle Lancets - Lancets - 4-16 Lancets - 00:00: 00 FreeStyle FreeStyle 2020-0 No FreeStyle Lite Test - Lite Test - 4-16 Lite Test 00:00: - 00 Humalog Humalog 2020-0 Yes Mercedez glucose Com mon KwikPen KwikPen 4-09 [place] 201-250 = Spi rit 00:00: 4 - CHI 00 units,251- St 300=7 [facility] units, Medical 301-350=9 Center units,351- 400=11 units over 400 call PCP Humalog Humalog 2020-0 No Humalog KwikPen 200 KwikPen 200 4-09 KwikPen UNIT/ML UNIT/ML 00:00: 200 00 UNIT/ML Humalog Humalog 2020-0 No Humalog KwikPen 200 KwikPen 200 4-09 KwikPen UNIT/ML UNIT/ML 00:00: 200 00 UNIT/ML HumaLOG HumaLOG 2020-0 No HumaLOG KwikPen 200 KwikPen 200 4-09 KwikPen UNIT/ML UNIT/ML 00:00: 200 00 UNIT/ML Metoprolol Metoprolol 2020-0 Yes Mercedez 1 tablet Common Succinate Succinate 01-09 [place] Spir it ER ER 00:00: - CHI 00 [facility] 2018- Yes [id number] Apply to [facility] 1-16 area(s) 2 ity of acetonide 00:00: (two) [place] 0.1 % cream 00 times Medical daily. Branch [facility] 2018- Yes [id number] Apply to [facility] 1-16 area(s) 2 ity of acetonide 00:00: (two) [...] ity of tablet 00:00: mouth 2 [place] (two) Medical times Branch daily with meals. metFORMIN 2016-10 Yes 1000mg Take 2 Univ ers 500 mg 2-18 tablets by ity of tablet 00:00: mouth 2 [place] (two) Medical times Branch daily with meals. ZOFRAN, Yes 4mg Take 1 Tab U nivers HYDROCHLORI 3-12 by mouth ity of [place], 4 mg 00:00: every 12 [place] tablet 00 (twelve) Medical hours. Branch ZOFRAN, Yes 4mg Take 1 Tab U nivers HYDROCHLORI 3-12 by mouth ity of [place], 4 mg 00:00: every 12 [place] tablet 00 (twelve) Medical hours. Branch Losartan Losartan Yes Mercedez 1 tablet Co mmon Potassium Potassium [place] Spir it [facility] Levemir Levemir Yes Mercedez 40 units Comm on FlexTouch FlexTouch [place] Spir [facility] Metformin Metformin Yes Mercedez 1 tablet Common HCl HCl [place] with a Spirit meal - [facility] Metoprolol Metoprolol No 1{table QD Metoprolol Succinate Succinate t} Succinate ER 50 MG ER 50 MG ER 50 MG Atorvastati Atorvastati No 1{table QD Atorvastat n Calcium n Calcium t} in Calcium 40 MG 40 MG 40 MG metFORMIN metFORMIN No 1{table BID metFORMIN HCl 1000 MG HCl 1000 MG t_with_ HCl 1000 a_meal} MG Levemir Levemir No BID Levemir FlexTouch FlexTouch FlexTouch 100 unit/mL 100 unit/mL 100 unit/mL Losartan Losartan No 1{table QD Losartan Potassium Potassium t} Potassium 25 MG 25 MG 25 MG HumaLOG HumaLOG No HumaLOG KwikPen 200 KwikPen 200 KwikPen unit/mL unit/mL 200 unit/mL Metoprolol Metoprolol No 1{table QD Metoprolol Succinate Succinate t} Succinate ER 50 MG ER 50 MG ER 50 MG Losartan Losartan No 1{table QD Losartan Potassium Potassium t} Potassium 25 MG 25 MG 25 MG Lactulose Lactulose No QD Lactulose 10 GM/15ML 10 GM/15ML 10 GM/15ML Atorvastati Atorvastati No 1{table QD Atorvastat n Calcium n Calcium t} in Calcium 40 MG 40 MG 40 MG Gabapentin Gabapentin No 1{capsu BID Gabapentin 300 MG 300 MG le} 300 MG HumaLOG HumaLOG No HumaLOG KwikPen 200 KwikPen 200 KwikPen unit/mL unit/mL 200 unit/mL Metformin Metformin No 1{table BID Metformin HCl 1000 MG HCl 1000 MG t_with_ HCl 1000 a_meal} MG Losartan Losartan No 1{table QD Losartan Potassium Potassium t} Potassium 25 MG 25 MG 25 MG Metoprolol Metoprolol No 1{table QD Metoprolol Succinate Succinate t} Succinate ER 50 MG ER 50 MG ER 50 MG Gabapentin Gabapentin No 1{capsu BID Gabapentin 300 MG 300 MG le} 300 MG Levemir Levemir No BID Levemir FlexTouch FlexTouch FlexTouch 100 unit/mL 100 unit/mL 100 unit/mL Atorvastati Atorvastati No 1{table QD Atorvastat n Calcium n Calcium t} in Calcium 40 MG 40 MG 40 MG Losartan Losartan No 1{table QD Losartan Potassium Potassium t} Potassium 25 MG 25 MG 25 MG Metoprolol Metoprolol No 1{table QD Metoprolol Succinate Succinate t} Succinate ER 50 MG ER 50 MG ER 50 MG Gabapentin Gabapentin No 1{capsu BID Gabapentin 300 MG 300 MG le} 300 MG Levemir Levemir No BID Levemir FlexTouch FlexTouch FlexTouch 100 unit/mL 100 unit/mL 100 unit/mL Metformin Metformin No 1{table BID Metformin HCl 1000 MG HCl 1000 MG t_with_ HCl 1000 a_meal} MG Atorvastati Atorvastati No 1{table QD Atorvastat n Calcium n Calcium t} in Calcium 40 MG 40 MG 40 MG Gabapentin Gabapentin No 1{capsu BID Gabapentin 300 MG 300 MG le} 300 MG metFORMIN metFORMIN No 1{table BID metFORMIN HCl 1000 MG HCl 1000 MG t_with_ HCl 1000 a_meal} MG Losartan Losartan No 1{table QD Losartan Potassium Potassium t} Potassium 25 MG 25 MG 25 MG Metoprolol Metoprolol No 1{table QD Metoprolol Succinate Succinate t} Succinate ER 50 MG ER 50 MG ER 50 MG Lactulose Lactulose No QD Lactulose 10 GM/15ML 10 GM/15ML 10 GM/15ML Levemir Levemir No BID Levemir FlexTouch FlexTouch FlexTouch 100 unit/mL 100 unit/mL 100 unit/mL Atorvastati Atorvastati No 1{table QD Atorvastat n Calcium n Calcium t} in Calcium 40 MG 40 MG 40 MG Lactulose Lactulose No QD Lactulose 10 GM/15ML 10 GM/15ML 10 GM/15ML Metoprolol Metoprolol No 1{table QD Metoprolol Succinate Succinate t} Succinate ER 50 MG ER 50 MG ER 50 MG HumaLOG HumaLOG No HumaLOG KwikPen 200 KwikPen 200 KwikPen unit/mL unit/mL 200 unit/mL Losartan Losartan No 1{table QD Losartan Potassium Potassium t} Potassium 25 MG 25 MG 25 MG Levemir Levemir No BID Levemir FlexTouch FlexTouch FlexTouch 100 unit/mL 100 unit/mL 100 unit/mL metFORMIN metFORMIN No 1{table BID metFORMIN HCl 1000 MG HCl 1000 MG t_with_ HCl 1000 a_meal} MG Gabapentin Gabapentin No 1{capsu BID Gabapentin 300 MG 300 MG le} 300 MG Atorvastati Atorvastati No 1{table QD Atorvastat n Calcium n Calcium t} in Calcium 40 MG 40 MG 40 MG Lactulose Lactulose No QD Lactulose 10 GM/15ML 10 GM/15ML 10 GM/15ML Gabapentin Gabapentin No 1{capsu BID Gabapentin 300 MG 300 MG le} 300 MG Immunizations Ordered Immunization Filled Immunization Date Status Commen ts Source Name Name Flucelvax - single Flucelvax - single 2018-07-13 Completed Common Spirit dose syringe dose syringe 16:10:00 - [facility] Flucelvax - single Flucelvax - single 2018-07-13 Completed Common Spirit dose syringe dose syringe 16:10:00 - [facility] Flucelvax - single Flucelvax - single 2018-07-13 Completed Common Spirit dose syringe dose syringe 16:10:00 - [facility] Flucelvax - single Flucelvax - single 2018-07-13 Completed Common Spirit dose syringe dose syringe 16:10:00 - [facility] Flucelvax - single Flucelvax - single 2018-07-13 Completed Common Spirit dose syringe dose syringe 16:10:00 - [facility] Flucelvax - single Flucelvax - single 2018-07-13 Completed Common Spirit dose syringe dose syringe 16:10:00 - [facility] Flucelvax Flucelvax 2018-07-13 Completed Common Spirit 00:00:00 - [facility] Vital Signs Vital Name Observation Time Observation Value Comments Source height 2022-01-01 10:20:00 65 [in_i] Common [facility] weight 2022-01-01 10:20:00 203.6 [lb_av] [facility] temperature 2022-01-01 10:20:00 97.6 [degF] [facility] bmi 2022-01-01 10:20:00 33.88 kg/m2 [facility] oximetry 2022-01-01 10:20:00 99 % [facility] respiratory rate 2022-01-01 10:20:00 18 /min Comm on [facility] blood pressure 2022-01-01 10:20:00 137 mm[Hg] [facility] - systolic [facility] blood pressure 2022-01-01 10:20:00 85 mm[Hg] [facility] - diastolic [facility] height 2021-05-26 11:40:00 65 [in_i] Common [facility] weight 2021-05-26 11:40:00 213.8 [lb_av] [facility] temperature 2021-05-26 11:40:00 97.3 [degF] Common [facility] bmi 2021-05-26 11:40:00 35.57 kg/m2 [facility] oximetry 2021-05-26 11:40:00 99 % [facility] respiratory rate 2021-05-26 11:40:00 18 /min Comm on [facility] blood pressure 2021-05-26 11:40:00 137 mm[Hg] Common [facility] - systolic [facility] blood pressure 2021-05-26 11:40:00 83 mm[Hg] Common [facility] - diastolic [facility] Procedures Procedure Date / Time Performed Performing Clinician [facility] COMP. METABOLIC PANEL 2021-11-14 18:06:00 Josep Garvin [facility] ([id number]) Medical Branch LIPID PANEL 2021-11-14 18:06:00 Josep Garvin [facility] ([id number])(TOTAL Medical Branch CHOLESTEROL, TRIGLYCERIDES, HDL) CBC WITHOUT DIFF 2021-11-14 18:06:00 Josep Garvin [facility] Encounters Start End Encounter Admission Attending Care Care Encounter Source Date/Time Date/Time Type Type Clinicians Facility Department ID 2022-03-25 Outpatient [place], STLMLC STLMLC [id number] Common 09:42:00 Mercedez [id number] [facility] 2021-10-29 Outpatient [place], STLMLC STLMLC [id number] Common 14:15:45 Mercedez [id number] [facility] 2021-10-29 Outpatient [place], STLMLC STLMLC [id number] Common 13:48:01 Mercedez [id number] [facility] 2021-10-29 Outpatient [place], STLMLC STLMLC [id number] Common 11:29:48 Mercedez [id number] [facility] 2021-10-29 Outpatient [place], STLMLC STLMLC [id number] Common 11:17:46 Mercedez [id number] [facility] 2022-09-03 2022-09-03 Outpatient GC_SEFP_Riv PRIV PRIV [id number] [facility] 00:00:00 00:00:00 era_A [id number] Medica l 2022-07-03 2022-07-03 Outpatient Yeimy GARVIN [facility] [id number] Univers 16:30:00 16:30:00 JOSEP [id number] [facility] 2022-07-03 2022-07-03 Outpatient Yeimy GARVIN [facility] [id number] Univers 16:30:00 16:30:00 JOSEP [facility] 2022-03-20 2022-03-20 Outpatient Yeimy YESY [facility] [id number] Univers 14:00:00 14:00:00 JOSEP [id number] rodrigo [facility] 2022-03-20 2022-03-20 Outpatient Yeimy YESY [facility] [id number] Univers 14:00:00 14:00:00 JOSEP [facility] 2022-01-01 2022-01-01 OFFICE STLMLC STLMLC [id number] Co mmon 00:00:00 00:00:00 VISIT EST Spir it PT LEVEL 3 [facility] 2021-11-15 2021-11-15 Telephone Carlos Lawson [facility] [id number] Univers 00:00:00 00:00:00 HEALTH [id number] it y of [facility] [id number] [facility] [id number] [address] ([facility]) 2021-11-14 2021-11-14 [employer] Lab, Ang - Db [facility] [id number] Univers 12:00:00 12:48:32 Visit Josep Garvin HEALTH [id number] ity of [place] [id number] Kam as JIM?BLEA [id number] [place] josh [address] MEDICAL OFFICE BUILDING 2021-11-14 2021-11-14 Outpatient R YESY [facility] [id number] Univers 11:00:00 11:51:54 JOSEP [facility] 2021-08-11 2021-08-11 (TEL) STLMLC STLMLC [id number] Co mmon 00:00:00 00:00:00 [facility] 2021-07-07 2021-07-07 (TEL) STLMLC STLMLC [id number] Co mmon 00:00:00 00:00:00 [facility] 2021-05-26 2021-05-26 OFFICE STLMLC STLMLC [id number] Co mmon 00:00:00 00:00:00 VISIT [facility] 4 [facility] 2021-01-14 2021-01-14 (TEL) STLMLC STLMLC [id number] Co mmon 00:00:00 00:00:00 [facility] 2020-12-26 2020-12-26 Outpatient STLMLC STLMLC [id number] Common 00:00:00 00:00:00 [facility] 2020-12-20 2020-12-20 (TEL) STLMLC STLMLC [id number] Co mmon 00:00:00 00:00:00 [facility] 2020-12-19 2020-12-19 Outpatient STLMLC STLMLC [id number] Common 00:00:00 00:00:00 [facility] 2020-12-19 2020-12-19 Outpatient STLMLC STLMLC [id number] Common 00:00:00 00:00:00 [facility] 2020-10-28 2020-10-28 Outpatient STLMLC STLMLC [id number] Common 00:00:00 00:00:00 [facility] 2020-10-28 2020-10-28 Outpatient STLMLC STLMLC [id number] Common 00:00:00 00:00:00 [facility] 2020-10-14 2020-10-14 Outpatient STLMLC STLMLC [id number] Common 00:00:00 00:00:00 [facility] 2020-10-14 2020-10-14 Outpatient STLMLC STLMLC [id number] Common 00:00:00 00:00:00 [facility] 2020-05-21 2020-05-21 [facility] [id number] Common 13:00:00 13:00:00 [facility] it [facility] 2020-03-01 2020-03-01 [facility] [id number] Common 10:40:00 10:40:00 [facility] it Road [facility] 2020-01-18 2020-01-18 [facility] [id number] Common 09:07:00 09:07:[address] Spir [address] [facility] 2020-01-18 2020-01-18 [facility] [id number] Common 08:41:00 08:41:[address] Spir [address] [facility] 2020-01-17 2020-01-17 [facility] [id number] Common 14:00:00 14:00:[address] Spir [address] [facility] 2020-01-12 2020-01-12 Outpatient [facility] [id number] Common 14:31:00 14:31:[address] Spir [address] [facility] 2020-01-12 2020-01-12 [facility]patient [facility] [id number] Common 14:25:00 14:25:[address] Spir [address] [facility] 2020-01-10 2020-01-10 [facility] [id number] Common 14:40:00 14:40:[address] Spir [address] [facility] 2019-08-02 2019-08-02 [facility] [id number] Common 09:40:00 09:40:[address] Spir [address] [facility] 2019-07-27 2019-07-27 [facility] [id number] Common 11:46:00 11:46:00 [address] [employer] [address] Spir it Drive [facility] 2019-07-17 2019-07-17 Out[facility] [id number] Common 14:40:00 14:40:[address] Spir [address] [facility] 2019-07-03 2019-07-03 Outpatient [facility] [id number] Common 11:40:00 11:40:[address] Spir [address] [facility] 2018-12-16 2018-12-16 Outpatient [facility] [id number] Common 14:14:00 14:14:[address] [facility] [address] Spir it [address] [facility] 2018-12-15 2018-12-15 Out[facility] [id number] Common 09:00:00 09:00:[address] [facility] [address] Spir it [address] [facility] 2018-11-01 2018-11-01 Outpatient [facility] [id number] Common 14:30:00 14:30:[address] [facility] [address] Spir it [address] [facility] 2018-10-12 2018-10-12 Outpatient [facility] [id number] Common 15:00:00 15:00:00 t [facility] Spir it Road [facility] 2018-07-13 2018-07-13 Outpatient [id number] Common 15:00:00 15:00:00 [facility] it Road [facility] Results Test Description Test Time Test Comments [...] as normal/abnormal . MPV (test code = 98393-2) 11.7 fL 9.5-12.9 RDW-CV (test code = 788-0) 13.0 % 12.0-15.5 RDW-SD (test code = 37423-1) 38.7 fL 39.0-49.9 L NRBC x10^3 (test code = <0.01 See_Comment [Au tomated message] The system [id number]) which generated this result transmitted ref erence range: 10*3/?L. The re ference range was not used to interpret this result as lane l/abnormal. NRBC/100 WBC (test code = See_Comment [ Automated message] The system [id number]) which generated this result transmitted ref erence range: 0.0 - 10.0 /100 WBCs. The reference range was not used to interpret this result as normal/abnormal . IPF % (test code = 3825067256) Lab Interpretation (test code Abnormal = 41562-6) [id number]TOTAL CHOLESTEROL, TRIGLYCERIDES, HDL)2021-11-14 22:18:31 Test Item Value Reference Range Interpretation Comments CHOL (test code = 204 mg/dL 120-200 H [id number]) HDL (test code = 45 mg/dL >50 L 5824142988) HDLC RATIO (test code = See_Comment [Au tomated message] [id number]) The system Kromat[employer] generated this result transmit mynor reference range : <=4.5. The refe rence range was not u sed to interpret th is result as normal/abnormal . TRIG (test code = 250 mg/dL 30-170 H 5517192494) LDL CHOL (test code = 109 mg/dL See_Comment [Auto mated message] 26097-5) The system [employer] generated this result transmit mynor reference range : <=160. The refe rence range was not u sed to interpret th is result as normal/abnormal . VLDL (test code = 50 mg/dL 5-60 6625808662) Lab Interpretation (test Abnormal code = 23319-3) [facility]. METABOLIC PANEL ([id number])2021-11-14 21:56:26 Test Item Value Reference Range Interpretation Comments NA (test code = 135 mmol/L 135-145 9294935417) K (test code = 4.5 mmol/L 3.5-5.0 2972713782) CL (test code = 101 mmol/L 98-108 0258234128) CO2 TOTAL (test code = 28 mmol/L 23-31 6410531886) AGAP (test code = 2-16 8859973334) BUN (test code = 16 mg/dL 7-23 9972975735) GLUCOSE (test code = 275 mg/dL 70-110 H [id number]) CREATININE (test code = 0.34 mg/dL 0.50-1.04 L 8427917383) TOTAL BILI (test code = 0.5 mg/dL 0.1-1.3 6912249333) CALCIUM (test code = 9.2 mg/dL 8.6-10.6 0467901203) T PROTEIN (test code = 7.1 g/dL 6.3-8.2 2725557598) ALBUMIN (test code = 4.4 g/dL 3.5-5.0 4655778253) ALK PHOS (test code = 55 U/L 34-122 0479668033) ALTv (test code = 13 U/L 5-35 1742-6) AST(SGOT) (test code = 18 U/L 13-40 7809334300) eGFR (test code = mL/min/1.73m2 5434120676) MELVIN (test code = MELVIN) Association of [...] tests). Lab Interpretation Abnormal (test code = 22520-6) [id number] 00:00:00 Test Item Value Reference Range Interpretation Comments A1C (test code = 4548-4) 14.7
[2022-09-13] MEDS ORDERED: DIPHENHYDRAMINE 50 MG/ML VIAL ONE (20:32)
[2022-09-13] MEDS ORDERED: ONDANSETRON 4 MG/2 ML VIAL ONE (20:33)
[2022-09-13] MEDS ORDERED: NA CHLORIDE 0.9% 1,000 ML ONE (20:33)
[2022-09-13] MEDS ORDERED: MORPHINE 4 MG/ML SYR ONE (20:33)
[2022-09-13 20:40] LABS: Hematocrit 37.1 % (36.0-45.0); Lymphocytes % 48.2 % (15.3-44.8); MCV 78.5 fL (80-100); MPV 8.5 fL (7.6-11.3); RBC Red Blood Cell Count 4.73 M/uL (3.86-4.86)
[2022-09-13 20:44] LABS: Protime INR 0.95
[2022-09-13 20:53] LABS: Urine Blood Negative (Negative); Urine Glucose 2+ (Negative); Urine Protein 1+ (Negative); Urine Specific Gravity 1.025 (1.005-1.030); Urine pH 8.5 (5.0-7.0)
[2022-09-13 21:05] LABS: Potassium 3.8 mmol/L (3.5-5.1)
[2022-09-13 21:05] LABS: Urine Specific Gravity/Preg 1.025 (1.005-1.030)
--- NOTE | 2022-09-13 21:39 | RAD REPORT ---
EXAM DESCRIPTION: CT - Head Brain Wo Cont - 09/13/2022 9:29 pm CLINICAL HISTORY: acute headache, right/posterior COMPARISON: <Comparisons> TECHNIQUE: All CT scans are performed using dose optimization technique as appropriate and may inclu de automated exposure control or mA/KV adjustment according to patient size. FINDINGS: No intracranial hemorrhage, hydrocephalus or extra-axial fluid collection.No areas of brai n edema or evidence of midline shift. The paranasal sinuses and mastoids are clear. The calvarium is intact. IMPRESSION: No acute intracranial abnormality.
--- NOTE | 2022-09-13 21:40 | RAD REPORT ---
EXAM DESCRIPTION: CT - Head angio - 09/13/2022 9:29 pm CLINICAL HISTORY: acute headache, sudden onset COMPARISON: None TECHNIQUE: CT angiography of the head was performed with MIPs. All CT scans are performed using dose optimization technique as appropriate and may include automated exposure control or mA/KV adjustment according to patient size. FINDINGS: Anterior circulation: No aneurysm or large vessel occlusion. No hemodynamically significant stenosis. No arteriovenous malf ormation identified. Posterior circulation: No aneurysm or large vessel occlusion. No hemodynamically significant stenosis. No arteriovenous malf ormation identified. IMPRESSION: No significant flow abnormality is detected. No intracranial aneurysm identified.
--- NOTE | 2022-09-13 21:43 | RAD REPORT ---
EXAM DESCRIPTION: CT - Neck Angio - 09/13/2022 9:29 pm CLINICAL HISTORY: acute headache COMPARISON: None TECHNIQUE: CT angiography of the neck vessels was performed with MIPs. All CT scans are performed using dose optimization technique as appropriate and may include automated exposure control or mA/KV adjustment according to patient size. 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 No significant flow abnormality is seen of the common carotid bilaterally. No significant stenosis is identified involving the cervical segments of both internal carotid arteri es. Calcified noncalcified plaque is present at the left proximal ICA. Stenosis is estimated at less than 50%, however. Normal flow is seen within both vertebral arteries. IMPRESSION: Mild (less than 50%) left proximal ICA stenosis. No other stenosis identified. No dissec tion.
[2022-09-13 21:47] LABS: Blood Morphology Comment NOT SEEN (NOT SEEN); Platelet Estimate ADEQ
--- NOTE | 2022-09-13 21:54 | ER ---
Nurse's Notes [facility] Name: Keely Gustafson Age: 42 yrs Sex: Female : 1980 Arrival Date: 09/13/2022 Time: 20:05 Bed 15 Private MD: Diagnosis: Headache Presentation: 09/13 20:14 Chief complaint: Patient states: Sharp pain on the back of the head that started ke1 suddenly while talking to her mom at home. Coronavirus screen: Vaccine status: Patient reports receiving the 2nd dose of the covid vaccine. Ebola Screen: No symptoms or risks identified at this time. Initial Sepsis Screen: Does the patient meet any 2 criteria? HR > 90 bpm. Does the patient have a suspected source of infection? No. Patient's initial sepsis screen is negative. Risk Assessment: Do you want to hurt yourself or someone else? Patient reports no desire to harm self or others. Onset of symptoms was September 13, 2022 at 19:44. 20:14 Method Of Arrival: Ambulatory ke 20:14 Acuity: SAUD 3 ke1 Triage Assessment: 20:16 Headache History: The patient has had previous headaches and this one is different than ke1 previous episodes. General: Appears uncomfortable, Behavior is crying. Pain: Complains of pain in scalp Pain currently is 10 out of 10 on a pain scale. 20:16 Pain: Pain began suddenly, Also complains of. Neuro: Level of Consciousness is awake, ke1 alert, obeys commands, Oriented to person, place, time, situation. Respiratory: Airway is patent Respiratory effort is even, unlabored. Historical: - Allergies: 20:16 No Known Allergies; ke1 - PMHx: 20:16 Diabetes - IDDM; Hypertensive disorder; ke1 - PSHx: 20:16 section; ke1 - Immunization history:: Adult Immunizations Client reports receiving the 2nd dose of the Covid vaccine. - Social history:: Smoking status: Patient denies any tobacco usage or history of. - Family history:: not pertinent. - Hospitalizations: : No recent hospitalization is reported. Screenin:54 Abuse screen: Denies threats or abuse. ke1 20:55 Nutritional screening: No deficits noted. Tuberculosis screening: No symptoms or risk ke1 factors identified. Fall Risk No fall in past 12 months (0 pts). No secondary diagnosis (0 pts). IV access (20 points). Ambulatory Aid- None/Bed Rest/Nurse Assist (0 pts). Gait- Normal/Bed Rest/Wheelchair (0 pts) Mental Status- Oriented to own ability (0 pts). Total Rutledge Fall Scale indicates No Risk (0-24 pts). Assessment: 20:53 Reassessment: Patient denies pain at this time. Patient states feeling better. Patient ke1 states symptoms have improved. Vital Signs: 20:14 BP 200 / 118; Pulse 110; Resp 19; Temp 99; Pulse Ox 100% on R/A; Weight 95.25 kg; ke1 Height 5 ft. 5 in. (165.10 cm); Pain 10/10; 20:42 Pain 0/10; ke1 20:53 BP 127 / 104; Pulse 99; Resp 19; Pulse Ox 100% ; Pain 0/10; ke1 21:40 BP 171 / 94; Pulse 97; Resp 16; Pulse Ox 100% ; Pain 0/10; ke1 21:52 BP 171 / 94; rn 22:07 BP 156 / 89; Pulse 91; Resp 17; Temp 98.5; Pulse Ox 100% ; Pain 0/10; ke1 20:14 Body Mass Index 34.95 (95.25 kg, 165.10 cm) ke1 [place] Coma Score: 21:52 Eye Response: spontaneous(4). Verbal Response: oriented(5). Motor Response: obeys rn commands(6). Total: 15. ED Course: 20:05 Patient arrived in ED. as 20:09 Neto Sidhu MD is Attending Physician. rn 20:14 Lilliam Powers RN is Primary Nurse. ke1 20:16 Triage completed. ke1 20:30 Inserted saline lock: 20 gauge in right antecubital area, using aseptic technique. ke1 20:41 Basic Metabolic Panel Sent. ke1 20:41 Protime (+inr) Sent. ke1 20:41 Ptt, Activated Sent. ke1 20:41 CBC with Diff Sent. ke1 20:54 Arm band placed on left wrist. ke1 20:55 Bed in low position. Call light in reach. Side rails up X 1. Side rails up X2. ke1 21:30 CT Head Brain wo Cont In Process Unspecified. EDMS 21:30 CT Head Angio In Process Unspecified. EDMS 21:[address] In Process Unspecified. EDMS 21:53 Anthony Ledesma MD is Referral Physician. rn 22:10 No provider procedures requiring assistance completed. IV discontinued. ke1 Administered Medications: 20:35 Drug: morphine 4 mg Route: IVP; Infused Over: 4 mins; Site: right antecubital; ke1 20:42 Follow up: Pain 0/10 Adult; Response: Marked relief of symptoms; Pain is decreased ke1 20:35 Drug: Zofran (Ondansetron) 4 mg Route: IVP; Site: right antecubital; ke1 20:42 Follow up: no nausea ke1 20:35 Drug: Benadryl (diphenhydrAMINE) 12.5 mg Route: IVP; Site: right antecubital; ke1 21:05 Follow up: Response: No adverse reaction ke1 20:41 Drug: NS 0.9% 1000 ml Route: IV; Rate: 1000 ml; Site: right antecubital; ke1 22:05 Drug: Ketorolac 15 mg Route: IVP; Site: right antecubital; ke1 22:11 Follow up: Response: No adverse reaction ke1 22:05 Drug: Decadron - Dexamethasone 10 mg Route: IVP; Site: right antecubital; ke1 22:11 Follow up: Response: No adverse reaction ke1 Medication: 22:10 VIS not applicable for this client. ke1 Intake: Outcome: 21:54 Discharge ordered by . rn 22:10 Discharged to home ambulatory. ke1 22:10 Condition: good 22:10 Discharge instructions given to patient. 22:11 Patient left the ED. ke1 Signatures: Dispatcher [employer] Donna Elizondo Roman, MD MD rn Ebrottie, Kouassi, RN RN ke1
--- NOTE | 2022-09-13 21:54 | EDPHYS ---
Physician Documentation [facility] Name: Keely Gustafson Age: 42 yrs Sex: Female : 1980 Arrival Date: 09/13/2022 Time: 20:05 Bed 15 Private MD: ED Physician Neto Sidhu HPI: 09/13 20:41 This 42 yrs old Female presents to ER via Ambulatory with complaints of rn Headache. 20:41 The patient complains of pain to the right side of the back of head and right occipital rn area. The patient describes the headache as aching. Onset: The symptoms/episode began/occurred just prior to arrival. Associated signs and symptoms: Pertinent positives: nausea, Pertinent negatives: altered mental status, fever, neck stiffness, rash, vision changes, vision loss, vomiting, weakness, vertigo. Severity of symptoms: At its worst the pain was "never this severe", in the emergency department the pain is unchanged. Headache History: The patient has had previous headaches and this one is more severe than previous episodes. The symptoms are alleviated by nothing. the symptoms are aggravated by nothing. The patient has not experienced similar symptoms in the past. The patient has not recently seen a physician. Denies trauma, has had migraine before but this one is worse. No fever. No neck stiffness. . Historical: - Allergies: 20:16 No Known Allergies; ke1 - PMHx: 20:16 Diabetes - IDDM; Hypertensive disorder; ke1 - PSHx: 20:16 section; ke1 - Immunization history:: Adult Immunizations Client reports receiving the 2nd dose of the Covid vaccine. - Social history:: Smoking status: Patient denies any tobacco usage or history of. - Family history:: not pertinent. - Hospitalizations: : No recent hospitalization is reported. ROS: 20:41 Constitutional: Negative for fever, chills, and weight loss, Eyes: Negative for injury, rn pain, redness, and discharge, Neck: Negative for injury, pain, and swelling, Cardiovascular: Negative for chest pain, palpitations, and edema, Respiratory: Negative for shortness of breath, cough, wheezing, and pleuritic chest pain, Abdomen/GI: Negative for abdominal pain, vomiting, diarrhea, and constipation, MS/Extremity: Negative for injury and deformity, Skin: Negative for injury, rash, and discoloration, Neuro: + headache Exam: 20:41 Constitutional: This is a well developed, well nourished patient who is awake, alert, rn crying and holding right back of head Head/Face: Normocephalic, atraumatic. Eyes: Pupils equal round and reactive to light, extra-ocular motions intact. Neck: Trachea midline, no. Supple, full range of motion without nuchal rigidity, or vertebral point tenderness. No Meningismus. Cardiovascular: Tachycardic, regular. No pulse deficits. Respiratory: Hyperventilating. Able to slow down breathing with coaching Abdomen/GI: Soft, non-tender Skin: Warm, dry MS/ Extremity: Pulses equal, no cyanosis Neuro: Awake and alert, GCS 15, oriented to person, place, time, and situation. Cranial nerves II-XII grossly intact. Motor strength 5/5 in all extremities. Sensory grossly intact. Cerebellar exam normal. Able to walk from wheelchair to bed. Vital Signs: 20:14 BP 200 / 118; Pulse 110; Resp 19; Temp 99; Pulse Ox 100% on R/A; Weight 95.25 kg; ke1 Height 5 ft. 5 in. (165.10 cm); Pain 10/10; 20:42 Pain 0/10; ke1 20:53 BP 127 / 104; Pulse 99; Resp 19; Pulse Ox 100% ; Pain 0/10; ke1 21:40 BP 171 / 94; Pulse 97; Resp 16; Pulse Ox 100% ; Pain 0/10; ke1 21:52 BP 171 / 94; rn 22:07 BP 156 / 89; Pulse 91; Resp 17; Temp 98.5; Pulse Ox 100% ; Pain 0/10; ke1 20:14 Body Mass Index 34.95 (95.25 kg, 165.10 cm) ke1 [place] Coma Score: 21:52 Eye Response: spontaneous(4). Verbal Response: oriented(5). Motor Response: obeys rn commands(6). Total: 15. MDM: 20:09 Patient medically screened. rn 21:52 Differential diagnosis: hypertensive headache, intracerebral hemorrhage, migraine, rn neoplasm, subarachnoid bleed, tension headache, trigeminal neuralgia, vasomotor headache. Data reviewed: vital signs, nurses notes, lab test result(s), radiologic studies, CT scan, and as a result, I will discharge patient. Counseling: I had a detailed discussion with the patient and/or guardian regarding: the historical points, exam findings, and any diagnostic results supporting the discharge/admit diagnosis, lab results, radiology results, the need for outpatient follow up, to return to the emergency department if symptoms worsen or persist or if there are any questions or concerns that arise at home. Response to treatment: the patient's symptoms have markedly improved after treatment, and as a result, I will discharge patient. Special discussion: I discussed with the patient/guardian in detail that at this point there is no indication for admission to the hospital. It is understood, however, that if the symptoms persist or worsen the patient needs to return immediately for re-evaluation. Based on the history and exam findings, there is no indication for further emergent testing or inpatient evaluation. I discussed with the patient/guardian the need to see the neurologist for further evaluation of the symptoms. I discussed with the patient/guardian the need to see the primary care provider for further evaluation of the symptoms. ED course: Pain almost resolved, smiling and reports feeling "1000 times better". Neg ct head and CTA head/neck. Will dc home with return precautions. . 09/13 20:14 Order name: CBC with Diff; Complete Time: 21:51 09/13 20:14 Order name: Basic Metabolic Panel; Complete Time: 21:38 09/13 20:14 Order name: Protime (+inr); Complete Time: 21:38 09/13 20:14 Order name: Ptt, Activated; Complete Time: 21:38 09/13 20:54 Order name: Urine Dipstick-Ancillary; Complete Time: 21:38 EDMD 09/13 20:58 Order name: Manual Differential; Complete Time: 21:51 EDMD 09/13 20:14 Order name: CT Head Brain wo Cont; Complete Time: 21:44 09/13 20:14 Order name: CT Head Angio; Complete Time: 21:44 09/13 20:14 Order name: Neck Angio CT; Complete Time: 21:44 09/13 21:00 Order name: Urine --Ancillary (enter results); Complete Time: 21:38 2 09/13 20:14 Order name: IV Start; Complete Time: 20:41 rn 09/13 20:14 Order name: Urine Dipstick-Ancillary (obtain specimen); Complete Time: 20:59 rn 09/13 20:14 Order name: Urine Test (obtain specimen); Complete Time: 20:59 rn Administered Medications: 20:35 Drug: morphine 4 mg Route: IVP; Infused Over: 4 mins; Site: right antecubital; ke1 20:42 Follow up: Pain 0/10 Adult; Response: Marked relief of symptoms; Pain is decreased ke1 20:35 Drug: Zofran (Ondansetron) 4 mg Route: IVP; Site: right antecubital; ke1 20:42 Follow up: no nausea ke1 20:35 Drug: Benadryl (diphenhydrAMINE) 12.5 mg Route: IVP; Site: right antecubital; ke1 21:05 Follow up: Response: No adverse reaction ke1 20:41 Drug: NS 0.9% 1000 ml Route: IV; Rate: 1000 ml; Site: right antecubital; ke1 22:05 Drug: Ketorolac 15 mg Route: IVP; Site: right antecubital; ke1 22:11 Follow up: Response: No adverse reaction ke1 22:05 Drug: Decadron - Dexamethasone 10 mg Route: IVP; Site: right antecubital; ke1 22:11 Follow up: Response: No adverse reaction ke1 Disposition Summary: 09/13/22 21:54 Discharge Ordered Location: Home rn Problem: new rn Symptoms: have improved rn Condition: Stable rn Diagnosis - Headache rn Followup: rn - With: Anthony Ledesma MD - When: As needed - Reason: Recheck today's complaints, Re-evaluation by your physician Discharge Instructions: - Discharge Summary Sheet rn - General Headache Without Cause rn - Hypertension, Adult rn Forms: - Medication Reconciliation Form rn - Thank You Letter rn - Antibiotic cardiothoracic icu rn - Prescription Opioid Use rn - Work release form ke1 Signatures: Dispatcher [employer] EDNeto Cabello MD MD rn Ebrottie, Kouassi, RN RN ke1 Corrections: (The following items were deleted from the chart) 20:43 20:41 Constitutional: This is a well developed, well nourished patient who is awake, rn alert, crying and holding right back of head Head/Face: Normocephalic, atraumatic. Eyes: Pupils equal round and reactive to light, extra-ocular motions intact. Neck: Trachea midline, no. Supple, full range of motion without nuchal rigidity, or vertebral point tenderness. No Meningismus. Cardiovascular: Tachycardic, regular. No pulse deficits. Respiratory: Hyperventilating. Able to slow down breathing with coaching Abdomen/GI: Soft, non-tender Skin: Warm, dry MS/ Extremity: Pulses equal, no cyanosis Neuro: Awake and alert, GCS 15, oriented to person, place, time, and situation. Cranial nerves II-XII grossly intact. Motor strength 5/5 in all extremities. Sensory grossly intact. Cerebellar exam normal. Able to walk from wheelchair to bed. rn
[2022-09-13] MEDS ORDERED: dexAMETHasone 10 MG/ML VIAL ONE (22:01)
[2022-09-13] MEDS ORDERED: KETOROLAC 30 MG/ML INJ ONE (22:02)
[2022-09-13 22:33] VITALS: O2SAT 100
[2022-09-13 22:38] VITALS: BP 156/89; TEMP 98.5
== END 2022-09-13 22:11 | disposition home or self-care (01) ==
LOC: ER 19:57
DX: R51.9 Headache, unspecified (principal); E11.9 Type 2 diabetes mellitus without complications; I10 Essential (primary) hypertension
CPT/HCPCS: 85025; 80048; 36415; 81025; 85610; 85730; 81003; 70450; 70496; 70498; 96375; 96374; 99284; Q9967; J1200; J1100; J7030; J2405